=== PATIENT | male | born 1985 | race Caucasian/White ===

== ENCOUNTER → 2018-10-15 | Outpatient (REF) | END | disposition home or self-care (01) | LOC: MERGE 08:34 → OCC 08:34 | PROVIDERS: ATTEND Family Medicine ==

== ENCOUNTER → 2018-10-15 | Outpatient (REF) ==
--- NOTE | 2018-10-15 13:49 | Diagnostic Imaging Report ---
INDICATION: Fell and injured left knee at work. FINDINGS: Three views of the left knee demonstrate a left knee joint effusion. No fracture or dislocation is identified. Consider MRI for further evaluation if needed. IMPRESSION: There is a moderate-sized left knee joint effusion. Dictated by: Dictated on workstation # [id number]
== END | disposition home or self-care (01) ==
LOC: OCC 08:25
PROVIDERS: ATTEND Family Medicine
CPT/HCPCS: 73562

== ENCOUNTER → 2018-10-24 | Outpatient (REF) ==
--- NOTE | 2018-10-24 15:43 | Diagnostic Imaging Report ---
EXAMINATION: Magnetic resonance imaging of the left knee without intravenous contrast DATE: October 24, 2018. COMPARISON: Left knee radiographs October 15, 2018. INDICATION: 32-year-old male, fall. Left knee pain and swelling. TECHNIQUE: Multiplanar, multisequence non contrast enhanced MR imaging was accomplished. FINDINGS: MENISCI: The medial meniscus is intact. The lateral meniscus is grossly intact. 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 The medial collateral ligament is intact. The fibula is absent. The visualized portions of the lateral collateral ligament, biceps femoris are intact in their imaged portions. The conjoined tendon is also intact in its imaged portions and extends below the [id number] of imaging. The quadriceps tendon and patella ligament are intact. There is no identified tear of the medial patellar retinaculum or medial patellofemoral ligament. JOINT: There is mild superficial fissuring of the cartilage of the medial patellar facet cartilage. There is a small focal area of signal at the bone cartilage interface of the medial patellar facet. There is a 10 mm wide transverse area of abnormal signal within the cartilage of the lateral femoral condyle in its mid weightbearing portion which potentially could reflect a cartilage contusion or chondromalacia. There is a broader area of full-thickness cartilage fissuring and irregularity of the lateral femoral condyle cartilage in its mid to posterior weight-bearing portion measuring approximately 16 x 19 mm in extent. The medial compartment cartilage appears grossly intact. There is a large knee joint effusion without identified intra-articular body or prominent synovitis. BONE: The tibia is anteriorly translated relative to the femur. As mentioned above, the fibula is absent. There is a nondisplaced fracture involving the medial aspect of the patella with associated marrow edema. There is a bone contusion of the lateral femoral condyle. This is compatible with a recent transient patellar dislocation. There are chronic appearing morphologic abnormalities of the distal femur and proximal tibia. The trochlear depth is very shallow. BURSAE AND SOFT TISSUES: There is no Ewing's cyst. IMPRESSION: 1. Findings compatible with a recent transient patellar dislocation with nondisplaced fracture of the medial patella and bone contusion of the lateral femoral condyle. 2. Very shallow trochlear groove. 3. Full-thickness cartilage signal abnormalities of the lateral femoral condyle as above. Patellar cartilage defects as well. No identified intra-articular body. Large knee joint effusion. 4. 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 There is also no visualized anterior cruciate ligament or posterior cruciate ligament. 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 There is anterior tibial translation relative to the distal femur. 5. Grossly intact menisci and additional ligaments and tendons. Dictated by: Dictated on workstation # [id number]
== END | disposition home or self-care (01) ==
LOC: RAD 09:02
PROVIDERS: ATTEND Nurse Practitioner Family
CPT/HCPCS: 73721